=== PATIENT | female | born 1955 | race Caucasian/White ===

== ENCOUNTER 2024-06-10 11:50 | Emergency (ER) | payer OTHER, MEDICARE ==
[~2024-06-10] VITALS: Ht 165.1 cm; Wt 84.1 kg
[2024-06-10 17:02] VITALS: BP 158/72; TEMP 97.8; O2SAT 96
== END 2024-06-10 17:04 | disposition home or self-care (01) ==
LOC: M ED 11:50
DX: S30.1XXA Contusion of abdominal wall, initial encounter (principal); V43.62XA Car passenger injured in collision with other type car in traffic accident, initial encounter; Y92.410 Unspecified street and highway as the place of occurrence of the external cause; Y93.89 Activity, other specified; Y99.8 Other external cause status; M54.50 Low back pain, unspecified; Z88.0 Allergy status to penicillin; Z88.1 Allergy status to other antibiotic agents; Z88.8 Allergy status to other drugs, medicaments and biological substances